=== PATIENT | male | born 1955 | race Caucasian/White ===

== ENCOUNTER 2022-03-04 10:04 | Emergency (ER) | payer BC, SELFPAY ==
[2022-03-04 10:19] VITALS: BP 167/89; PULSE 64; RESP 18; TEMP 36.9; O2SAT 99; BMI 28.5
--- NOTE | 2022-03-04 10:49 | ED.BACK ---
HPI - Back Pain/Injury General Chief Complaint: Back Pain/Injury Stated Complaint: [facility] sent for MRI of lower back Time Seen by Provider: 03/04/22 10:49 Source: patient Mode of arrival: Ambulatory Limitations: no limitations History of Present Illness HPI Narrative: 67-year-old male comes emergency department with complaint of low back pain after [place] the [place] in [place] moving van for 5 days. Patient states it was very hard beds with a lot of bumps on the road he has had increasing pain in his back radiating down his legs and muscle spasms and radiating up towards his neck. He did note that he has had a sense of difficulty emptying his bladder he is able to urinate but feels like there is some hesitancy. He denies fevers or chills. He has pain radiating down both legs but no paresthesias, numbness. He is unsure if he has any weakness he states it may just be more from pain. Patient has not had prior issues in the past. He has never had prior back surgeries. He takes medications for dyslipidemia, hypertension and thyroid. Patient has had a prior hemorrhoidectomy and anoplasty after developing constriction of the rectum post hemorrhoidectomy. He has not had any other additional surgeries. No known drug allergies. Former smoker, occasional alcohol, no illicit. Patient just moved here this week and has not established. Related Data Home Medications Medication Instructions Recorded Confirmed atorvastatin 10 mg tablet 10 mg PO DAILY 03/04/22 03/04/22 lisinopril 10 mg tablet 10 mg PO DAILY 03/04/22 03/04/22 thyroid (pork) 60 mg tablet 60 mg PO DAILY 03/04/22 03/04/22 ([place] Thyroid) Previous Rx's Medication Instructions Recorded gabapentin 300 mg capsule 300 mg PO TID #30 cap 03/04/22 meloxicam 7.5 mg tablet 7.5 mg PO BID PRN #20 tab 03/04/22 Allergies Allergy/AdvReac Type Severity Reaction Status Date / Time No Known Drug Allergies Allergy Unverified 03/04/22 09:32 Review of Systems Review of Systems ROS Unobtainable: All systems reviewed & are unremarkable except as noted in HPI and below Patient History Social History Smoking Status: Former smoker Smoking Status: Former smoker alcohol intake frequency: a few times a month Substance Use Type: does not use Exam Narrative Exam Narrative: GENERAL: Alert and oriented x three, well-nourished male in mild distress. HEENT: Head normocephalic, atraumatic, EOMI, pupils reactive, face symmetric, moist mucous membranes NECK: Supple, full range of motion CARDIOVASCULAR: Regular rate and rhythm without murmurs, rubs or gallops. RESPIRATORY: Breath sounds equal bilaterally, no wheezes rales or rhonchi. ABDOMEN: Soft, nontender. Normoactive bowel sounds all 4 quadrants. No guarding or rebound, rigidity, no mass : No CVA tenderness BACK: No cervical, thoracic or lumbar vertebral point tenderness. Patient has slightly decreased range of motion. Patient's gait is ambulatory. Rectal exam is normal sphincter tone. Muscle strength is 5/5 in lower extremities, DTRs are 2/4 and lower extremities. Dorsalis pedis and tibialis pulses are 2+ and lower extremities. Sensation is intact in the lower extremities. EXTREMITIES: Normal range of motion, no clubbing or edema. Neurovascularly intact NEUROLOGICAL: Cranial nerves II through XII grossly intact. Moving all extremities SKIN: Warm, dry, no petechiae, no rashes or lesions. Initial Vital Signs Initial Vital Signs: Vital Signs Temperature 98.4 F 03/04/22 10:19 Pulse Rate 64 03/04/22 10:19 Respiratory Rate 18 03/04/22 10:19 Blood Pressure 167/89 H 03/04/22 10:19 Pulse Oximetry 99 03/04/22 10:19 Course Orders Ordered: ED Orders 03/04/22 11:22 MR lumbar spine wo con Stat Discontinued Medications Ketorolac Tromethamine (Ketorolac 30 Mg/Ml Vial) 30 mg IM NOW ONE Stop: 03/04/22 11:22 Last Admin: 03/04/22 11:26 Dose: 30 mg Documented by: BTONER Reevaluation(s) Reevaluation #1: Recheck after medications an MRI patient feels more comfortable. Reviewed his findings today. Will set him up with follow-up as he does not have any currently and also options for primary care discussed options for pain medication and pain control and red flag symptoms to return for. Patient expresses understanding all questions answered. Vital Signs Vital signs: Vital Signs - 8 hr 03/04/22 10:19 03/04/22 13:31 Temperature 98.4 F Pulse Rate 64 74 Respiratory Rate 18 18 Blood Pressure 167/89 H 145/79 H Pulse Oximetry 99 99 MDM - Back Pain/Injury Imaging Data MRI Lspine: Radiologist's Impression: Launch?[address] [address] Magnetic Resonance Report Signed Patient: Mike Fabian MR#: [id number] : 1955 Acct:[id number] Age/Sex: 67 / M Date of Service: 03/04/22 Loc: ED Accession Number: [id number] ?? Procedure: MR lumbar spine wo con Ordering Provider: Yvonne Colon D.O. PROCEDURE:? MR LUMBAR SPINE WO CON ? INDICATIONS:? low back pain, radiates both legs, urinary hesitancy ? TECHNIQUE:? Noncontrast sagittal T1 spin echo and T2 fast echo, sagittal STIR, and T2 fast spin echo through the lumbar spine.? In cases with scoliosis, additional coronal T2 fast spin echo may be performed.? ? COMPARISON:? None. ? FINDINGS:? Image quality:? Excellent.? ? Alignment and Curvature:? There is normal bony alignment.? ? Bone Marrow:? Marrow is of normal overall signal. Scattered foci are seen, which are hyperintense on T1-weighted and T2-weighted imaging, which are most consistent with benign vertebral body hemangiomas. ? No acute vertebral body compression fractures.? Mild fatty metaplasia can be seen of the sacrum. ? Spinal Cord:? Conus medullaris terminates at the L1 level.? Visualized cord demonstrates normal signal and size.? A prominent fatty filum terminalis can be seen, without findings of cord tethering. ? Paraspinous Soft Tissues:? No paravertebral masses.? Simple appearing bilateral renal cysts are seen. ? T12-L1:? Normal appearance.? ? L1-L2:? Normal appearance.? ? L2-L3:? No significant abnormality is seen. ? L3-L4:? The disc height is well-preserved.? Loss of disc signal is seen at this level.? Mild to moderate disc bulge is seen. Mild facet joint hypertrophy is seen. Moderate bilateral neural foraminal narrowing is seen.? Mild central canal narrowing is seen.? ? L4-L5:? Mild loss of disc height is seen. Loss of disc signal is seen.? Reactive marrow endplate changes are seen posteriorly, which are hyperintense on T1-weighted and T2-weighted imaging and most consistent with fatty metaplasia (Modic type II changes).? Moderate generalized disc bulge is seen. There is a superimposed central disc protrusion. ? Mild to moderate facet hypertrophy is seen.? There is moderate to severe right-sided and at least moderate left-sided neural foraminal narrowing.? There is a degree of compression seen upon the exiting nerve roots.? Mild to moderate central canal narrowing is seen.? ? L5-S1:? At least moderate loss of disc height and disc signal can be seen. Reactive marrow endplate changes are seen posteriorly, which are hyperintense on T1-weighted and T2-weighted imaging and most consistent with fatty metaplasia (Modic type II changes).? At least moderate disc bulge is seen, which is eccentric to the left.? There is a mild central disc protrusion.? There is at least moderate bilateral neural foraminal narrowing seen. Mild central canal narrowing is seen.? ? ? IMPRESSION:? Lumbar spine degenerative changes can be seen, which are worst inferiorly. ? Dictated by: Christoph Zavala M.D. on 03/04/2022 at 11:28 ? ? Approved by: Christoph Zavala M.D. on 03/04/2022 at 11:32? MDM Narrative Medical decision making narrative: This is a 67-year-old male who comes in with complaint of back pain with some symptoms of urinary hesitancy and questionable weakness. Patient is ambulating in department his neuro exam is normal. Patient does not have follow-up locally available to him he just moved here this week he was sent from walk-in clinic for possible MRI. Patient and I discussed we do have a slot available so imaging was obtained he has some disc bulge, some mild to moderate narrowing of the canal and also some moderate to severe neural foraminal narrowing. With his reassuring exam plan for follow-up but was given referral with Dr. Black our local spinal surgeon as well as primary care. Discharge Plan Departure Patient Disposition: Home Clinical Impression: Neural foraminal stenosis of lumbar spine, Back pain Instructions: DI for Back Pain With Sciatica Activity Restrictions/Additional Instructions: Follow-up with orthopedic surgery for recheck. Referral is included below. Please call for an appointment. You may call [phone] to help you find establish with a primary care physician. You can also call the number on your insurance card to see if they give recommendations locally. Your imaging does show changes to the discs in her back as well as narrowing of the neural foramina causing some impingement on the nerve roots. You may take meloxicam 1 tablet every 12 hours as needed for pain. You may also find gabapentin 1 tablet every 8 hours is helpful for nerve pain. This medication can be titrated upwards if needed but usually under the direction of a physician. Prescription sent to [facility] in [place]. Please return for fevers, loss of bowel or bladder control, rapidly worsening symptoms, weakness inability to ambulate, lift or move her leg or other new or concerning symptoms. Prescriptions: New meloxicam 7.5 mg tablet 7.5 mg PO BID PRN (Reason: pain) Qty: 20 0RF gabapentin 300 mg capsule 300 mg PO TID Qty: 30 0RF No Action lisinopril 10 mg tablet 10 mg PO DAILY 0RF atorvastatin 10 mg tablet 10 mg PO DAILY 0RF thyroid (pork) [[place] Thyroid] 60 mg tablet 60 mg PO DAILY 0RF Referrals: Sima Curry MD [Physician] -
--- NOTE | 2022-03-04 11:22 | DI.MRI.S_ITS ---
PROCEDURE: MR LUMBAR SPINE WO CON INDICATIONS: low back pain, radiates both legs, urinary hesitancy TECHNIQUE: Noncontrast sagittal T1 spin echo and T2 fast echo, sagittal STIR, and T2 fast spin echo through the lumbar spine. In cases with scoliosis, additional coronal T2 fast spin echo may be performed. COMPARISON: None. FINDINGS: Image quality: Excellent. Alignment and Curvature: There is normal bony alignment. Bone Marrow: Marrow is of normal overall signal. Scattered foci are seen, which are hyperintense on T1-weighted and T2-weighted imaging, which are most consistent with benign vertebral body hemangiomas. No acute vertebral body compression fractures. Mild fatty metaplasia can be seen of the sacrum. Spinal Cord: Conus medullaris terminates at the L1 level. Visualized cord demonstrates normal signal and size. A prominent fatty filum terminalis can be seen, without findings of cord tethering. Paraspinous Soft Tissues: No paravertebral masses. Simple appearing bilateral renal cysts are seen. T12-L1: Normal appearance. L1-L2: Normal appearance. L2-L3: No significant abnormality is seen. L3-L4: The disc height is well-preserved. Loss of disc signal is seen at this level. Mild to moderate disc bulge is seen. Mild facet joint hypertrophy is seen. Moderate bilateral neural foraminal narrowing is seen. Mild central canal narrowing is seen. L4-L5: Mild loss of disc height is seen. Loss of disc signal is seen. Reactive marrow endplate changes are seen posteriorly, which are hyperintense on T1-weighted and T2-weighted imaging and most consistent with fatty metaplasia (Modic type II changes). Moderate generalized disc bulge is seen. There is a superimposed central disc protrusion. Mild to moderate facet hypertrophy is seen. There is moderate to severe right-sided and at least moderate left-sided neural foraminal narrowing. There is a degree of compression seen upon the exiting nerve roots. Mild to moderate central canal narrowing is seen. L5-S1: At least moderate loss of disc height and disc signal can be seen. Reactive marrow endplate changes are seen posteriorly, which are hyperintense on T1-weighted and T2-weighted imaging and most consistent with fatty metaplasia (Modic type II changes). At least moderate disc bulge is seen, which is eccentric to the left. There is a mild central disc protrusion. There is at least moderate bilateral neural foraminal narrowing seen. Mild central canal narrowing is seen. IMPRESSION: Lumbar spine degenerative changes can be seen, which are worst inferiorly. Dictated by: Christoph Zavala M.D. on 03/04/2022 at 11:28 Approved by: Christoph Zavala M.D. on 03/04/2022 at 11:32
[2022-03-04] MEDS: KETOROLAC 30 MG/ML VIAL IM (11:26)
[2022-03-04 13:31] VITALS: BP 145/79; PULSE 74; RESP 18; O2SAT 99
== END 2022-03-04 13:32 | disposition home or self-care (01) ==
PROVIDERS: Emergency Provider Emergency Medicine
DX: M48.061 Spinal stenosis, lumbar region without neurogenic claudication (principal); R39.11 Hesitancy of micturition
CPT/HCPCS: 72148; 96372; 99283; 99284; J1885

== ENCOUNTER → 2022-06-24 08:11 | Outpatient (CLI) | payer BC, SELFPAY ==
[2022-06-24 08:55] LABS: Appearance Urine UA CLEAR; Bilirubin Urine UA NEGATIVE (NEGATIVE); Color Urine UA YELLOW; Glucose Urine UA NEGATIVE (Negative); Ketones Urine UA NEGATIVE (NEGATIVE); Leukocyte Esterase Urine UA NEGATIVE (NEGATIVE); Nitrite Urine UA NEGATIVE (Negative); Occult Blood Urine UA 1+ (Negative); Protein Urine UA NEGATIVE (Negative); Specific Gravity Urine UA 1.025 (1.000-1.035); Urobilinogen Urine UA 0.2 E.U./dL (0.2)
[2022-06-24 09:06] LABS: Bacteria Urine Few (2-10); RBC Urine 1-5/HPF (0-5/HPF); WBC Urine 0-1/HPF (0-5/HPF)
[2022-06-24 09:07] LABS: Culture Indicated Urine Cult Not Indicated; Mucus Urine 1+ (Negative)
[2022-06-24 09:28] LABS: Add Manual Diff / Slide Review NO; Basophils Absolute Auto 0 /uL (0-100); Basophils Percent Auto 0.7 % (0-2); Eosinophils Absolute Auto 100 /uL (0-450); Eosinophils Percent Auto 1.6 % (2-4); Hematocrit 43.6 % (41-53); Hemoglobin 15.2 g/dL (13.5-17.5); Lymphocytes Absolute Auto 2000 /uL (1100-4500); Lymphocytes Percent Auto 30.4 % (25-40); Mean Corpuscular HGB Conc 34.7 % (30-36); Mean Corpuscular Volume 86.3 fL (80-100); Monocytes Absolute Auto 600 /uL (0-900); Monocytes Percent Auto 9.2 % (3-14); Neutrophils Absolute Auto 3800 /uL (1500-7000); Neutrophils Percent Auto 58.1 % (50-75); Platelet Count 228 X10^3/uL (150-400); Red Blood Cell Count 5.06 X10^6/uL (4.5-5.9); Red Cell Distribution Width 13.7 % (11.6-14.8); White Blood Cell Count 6.5 X10^3/uL (4.5-11.0)
[2022-06-24 09:39] LABS: Alanine Aminotransferase 27 IU/L (<50); Albumin 4.7 g/dL (3.5-5.0); Albumin Globulin Ratio 1.6 (1.0-2.8); Alkaline Phosphatase 85 U/L (38-126); Aspartate Aminotransferase 29 IU/L (17-59); BUN Creatinine Ratio 17.3 (6-22); Bilirubin Total 0.9 mg/dL (0.2-1.3); Blood Urea Nitrogen 19 mg/dL (9-20); Calcium 8.9 mg/dL (8.4-10.2); Carbon Dioxide 24 mmol/L (22-32); Chloride 106 mmol/L (98-107); Cholesterol 201 mg/dL (140-199); Estimated Glomerular Filt Rate > 60 mL/min (>60); Globulin 2.9 g/dL (1.7-4.1); Glucose 98 mg/dL (80-110); HDL Cholesterol 37 mg/dL (40-60); HEMOLYSIS < 15 (0-50); LDL Cholesterol Calculated 130 mg/dL (<100); Potassium 4.1 mmol/L (3.4-5.1); Sodium 138 mmol/L (137-145); Total Protein 7.6 g/dL (6.3-8.2); Triglycerides 170 mg/dL (35-150)
[2022-06-24 10:06] LABS: Prostate Specific Antigen Scrn 0.986 ng/mL (0.1-4.0)
[2022-06-24 10:09] LABS: Testosterone 273 ng/dL (71.8-623)
[2022-06-24 10:11] LABS: TSH w/ Reflex to FT4 1.51 uIU/mL (0.47-4.68)
== END ==
PROVIDERS: PCP Pediatrics; Referring Provider Pediatrics; Visit Provider Pediatrics
DX: E03.9 Hypothyroidism, unspecified (principal); E78.5 Hyperlipidemia, unspecified; I10 Essential (primary) hypertension; Z12.5 Encounter for screening for malignant neoplasm of prostate
CPT/HCPCS: 36415; 80053; 80061; 81001; 84403; 84443; 85025; G0103

== ENCOUNTER → 2023-10-06 08:56 | Outpatient (CLI) | payer BC, SELFPAY ==
[2023-10-06 09:43] LABS: Add Manual Diff / Slide Review NO; Basophils Absolute Auto 0 /uL (0-100); Basophils Percent Auto 0.5 % (0-2); Eosinophils Absolute Auto 200 /uL (0-450); Eosinophils Percent Auto 2.8 % (2-4); Hematocrit 44.5 % (41-53); Lymphocytes Absolute Auto 2000 /uL (1100-4500); Lymphocytes Percent Auto 29.2 % (25-40); Mean Corpuscular HGB Conc 33.8 % (30-36); Mean Corpuscular Hemoglobin 29.3 PG (26-34); Mean Corpuscular Volume 86.8 fL (80-100); Monocytes Absolute Auto 600 /uL (0-900); Monocytes Percent Auto 8.7 % (3-14); Neutrophils Absolute Auto 4100 /uL (1500-7000); Neutrophils Percent Auto 58.8 % (50-75); Platelet Count 214 X10^3/uL (150-400); Red Blood Cell Count 5.13 X10^6/uL (4.5-5.9); Red Cell Distribution Width 13.3 % (11.6-14.8); White Blood Cell Count 6.9 X10^3/uL (4.5-11.0)
[2023-10-06 10:31] LABS: Erythrocyte Sedimentation Rate 3 MM/HR (0-15)
[2023-10-06 12:37] LABS: Alanine Aminotransferase 40 IU/L (<50); Albumin Globulin Ratio 1.4 (1.0-2.8); Alkaline Phosphatase 72 U/L (38-126); Aspartate Aminotransferase 35 IU/L (17-59); BUN Creatinine Ratio 14.6 (6-22); Bilirubin Total 0.6 mg/dL (0.2-1.3); Blood Urea Nitrogen 15 mg/dL (9-20); Calcium 9.2 mg/dL (8.4-10.2); Carbon Dioxide 28 mmol/L (22-32); Chloride 104 mmol/L (98-107); Cholesterol 184 mg/dL (140-199); Estimated Glomerular Filt Rate > 60 mL/min (>60); Globulin 2.9 g/dL (1.7-4.1); Glucose 89 mg/dL (80-110); HDL Cholesterol 45 mg/dL (40-60); HEMOLYSIS < 15 (0-50); LDL Cholesterol Calculated 111 mg/dL (<100); Potassium 4.5 mmol/L (3.4-5.1); Sodium 138 mmol/L (137-145); Total Protein 6.9 g/dL (6.3-8.2); Triglycerides 140 mg/dL (35-150)
[2023-10-06 12:45] LABS: Rheumatoid Factor < 8.6 IU/mL (<12.0)
[2023-10-06 13:09] LABS: Testosterone 262 ng/dL (71.8-623)
== END ==
PROVIDERS: PCP Student in an Organized Health Care Education/Training Program; Referring Provider Student in an Organized Health Care Education/Training Program; Visit Provider Student in an Organized Health Care Education/Training Program
DX: E03.9 Hypothyroidism, unspecified (principal); M25.50 Pain in unspecified joint; E78.5 Hyperlipidemia, unspecified; I10 Essential (primary) hypertension; R53.83 Other fatigue
CPT/HCPCS: 36415; 80053; 80061; 84403; 84443; 85025; 85651; 86430

== ENCOUNTER → 2023-10-15 09:02 | Outpatient (CLI) | payer BC, SELFPAY ==
[2023-10-15 10:49] LABS: Follicle Stimulating Hormone 4.19 mIU/mL; Luteinizing Hormone 1.95 mIU/mL
[2023-10-21 09:09] LABS: Percent Free Testosterone 2.06 % (1.50-4.20)
== END ==
PROVIDERS: PCP Student in an Organized Health Care Education/Training Program; Referring Provider Student in an Organized Health Care Education/Training Program; Visit Provider Student in an Organized Health Care Education/Training Program
DX: R79.89 Other specified abnormal findings of blood chemistry (principal); R53.83 Other fatigue
CPT/HCPCS: 36415; 83001; 83002; 84402; 84403

== ENCOUNTER → 2023-12-06 09:44 | Outpatient (CLI) | payer BC, SELFPAY ==
[2023-12-06 10:32] LABS: C-Reactive Protein Quant < 0.5 mg/dL (<1.0)
[2023-12-06 10:41] LABS: Free T3, Triiodothyronine Free 3.79 pg/mL (2.77-5.27)
[2023-12-06 10:55] LABS: TSH w/ Reflex to FT4 1.12 uIU/mL (0.47-4.68)
== END ==
LOC: LAB 09:45
PROVIDERS: PCP Student in an Organized Health Care Education/Training Program; Referring Provider Student in an Organized Health Care Education/Training Program; Visit Provider Student in an Organized Health Care Education/Training Program
DX: R79.89 Other specified abnormal findings of blood chemistry (principal); N40.1 Benign prostatic hyperplasia with lower urinary tract symptoms; R33.8 Other retention of urine; R53.83 Other fatigue; M25.50 Pain in unspecified joint; E78.5 Hyperlipidemia, unspecified; I10 Essential (primary) hypertension; E03.9 Hypothyroidism, unspecified
CPT/HCPCS: 36415; 84443; 84481; 86140

== ENCOUNTER → 2024-05-14 09:01 | Outpatient (CLI) | payer BC, SELFPAY ==
[2024-05-14 11:53] LABS: Cholesterol 195 mg/dL (140-199); HDL Cholesterol 54 mg/dL (40-60); LDL Cholesterol Calculated 114 mg/dL (<100); Triglycerides 133 mg/dL (35-150)
[2024-05-14 11:57] LABS: High Sensitivity CRP - Cardiac 1.3 mg/L (1.0-3.0)
[2024-05-14 12:07] LABS: Free T3, Triiodothyronine Free 3.01 pg/mL (2.77-5.27); Free T4, Direct Thyroxine 1.09 ng/dL (0.78-2.19)
[2024-05-14 12:20] LABS: Thyroid Stimulating Hormone 0.578 uIU/mL (0.47-4.68)
== END ==
PROVIDERS: PCP Student in an Organized Health Care Education/Training Program; Referring Provider Student in an Organized Health Care Education/Training Program; Visit Provider Student in an Organized Health Care Education/Training Program
DX: R53.83 Other fatigue (principal); E78.5 Hyperlipidemia, unspecified; I10 Essential (primary) hypertension
CPT/HCPCS: 36415; 80061; 84439; 84443; 84481; 86140

== ENCOUNTER → 2025-03-31 09:48 | Outpatient (CLI) | payer BC, SELFPAY ==
[2025-03-31 10:51] LABS: Add Manual Diff / Slide Review NO; Basophils Absolute Auto 0 /uL (0-100); Basophils Percent Auto 0.6 % (0-2); Eosinophils Absolute Auto 100 /uL (0-450); Eosinophils Percent Auto 1.4 % (2-4); Hematocrit 40.7 % (41-53); Lymphocytes Absolute Auto 2400 /uL (1100-4500); Lymphocytes Percent Auto 31.5 % (25-40); Mean Corpuscular HGB Conc 34.4 % (30-36); Mean Corpuscular Hemoglobin 29.8 PG (26-34); Mean Corpuscular Volume 86.7 fL (80-100); Monocytes Absolute Auto 700 /uL (0-900); Monocytes Percent Auto 9.5 % (3-14); Neutrophils Absolute Auto 4300 /uL (1500-7000); Platelet Count 231 X10^3/uL (150-400); Red Cell Distribution Width 14.1 % (11.6-14.8); White Blood Cell Count 7.6 X10^3/uL (4.5-11.0)
[2025-03-31 11:37] LABS: Hemoglobin A1C% w Est Avg Glu 5.3 % (4.0-6.0)
[2025-03-31 11:42] LABS: Alanine Aminotransferase 34 IU/L (<50); Albumin 4.5 g/dL (3.5-5.0); Albumin Globulin Ratio 1.8 (1.0-2.8); Alkaline Phosphatase 76 U/L (38-126); Aspartate Aminotransferase 32 IU/L (17-59); BUN Creatinine Ratio 19.8 (6-22); Blood Urea Nitrogen 24 mg/dL (9-20); Calcium 9.3 mg/dL (8.4-10.2); Carbon Dioxide 26 mmol/L (22-32); Chloride 104 mmol/L (98-107); Cholesterol 302 mg/dL (140-199); Estimated Glomerular Filt Rate > 60 mL/min (>60); Globulin 2.5 g/dL (1.7-4.1); Glucose 86 mg/dL (70-99); HDL Cholesterol 41 mg/dL (40-60); HEMOLYSIS < 15 (0-50); LDL Cholesterol Calculated 233 mg/dL (<100); Potassium 3.8 mmol/L (3.4-5.1); Sodium 138 mmol/L (137-145); Triglycerides 139 mg/dL (35-150)
[2025-03-31 12:10] LABS: Prostate Specific Antigen 0.998 ng/mL (0.10-4.00)
[2025-04-01 04:08] LABS: Apolipoprotein B 162 mg/dL (<90); CRP, High Sensitivity 2.32 mg/L (0.00-3.00)
== END ==
PROVIDERS: PCP Student in an Organized Health Care Education/Training Program; Referring Provider Student in an Organized Health Care Education/Training Program; Visit Provider Student in an Organized Health Care Education/Training Program
DX: Z13.1 Encounter for screening for diabetes mellitus (principal); N40.0 Benign prostatic hyperplasia without lower urinary tract symptoms; I10 Essential (primary) hypertension; E78.5 Hyperlipidemia, unspecified
CPT/HCPCS: 36415; 80053; 80061; 82172; 83036; 84153; 85025; 86140

== ENCOUNTER → 2025-04-19 14:07 | Outpatient (CLI) | payer BC, SELFPAY ==
[2025-04-19 17:15] LABS: Free T3, Triiodothyronine Free 3.23 pg/mL (2.77-5.27); Free T4, Direct Thyroxine 1.13 ng/dL (0.78-2.19)
[2025-04-19 17:29] LABS: Thyroid Stimulating Hormone 1.39 uIU/mL (0.47-4.68)
[2025-04-21 04:41] LABS: CRP, High Sensitivity 1.85 mg/L (0.00-3.00)
== END ==
PROVIDERS: PCP Student in an Organized Health Care Education/Training Program; Referring Provider Student in an Organized Health Care Education/Training Program; Visit Provider Student in an Organized Health Care Education/Training Program
DX: E03.9 Hypothyroidism, unspecified (principal); Z79.899 Other long term (current) drug therapy; E78.5 Hyperlipidemia, unspecified; I10 Essential (primary) hypertension
CPT/HCPCS: 36415; 84439; 84443; 84481; 86140

== ENCOUNTER → 2025-06-15 12:20 | Outpatient (CLI) | payer BC, SELFPAY ==
[2025-06-15 13:19] LABS: Cholesterol 183 mg/dL (140-199); HDL Cholesterol 44 mg/dL (40-60); Triglycerides 182 mg/dL (35-150)
== END ==
PROVIDERS: PCP Student in an Organized Health Care Education/Training Program; Referring Provider Student in an Organized Health Care Education/Training Program; Visit Provider Student in an Organized Health Care Education/Training Program
DX: E78.5 Hyperlipidemia, unspecified (principal)
CPT/HCPCS: 36415; 80061; 82172

== ENCOUNTER 2025-07-06 09:10 | Day surgery (SDC) | payer BC, OTHER, SELFPAY ==
[2025-07-06 09:28] VITALS: BP 127/69; PULSE 60; RESP 15; TEMP 36.1; O2SAT 98
[2025-07-06] MEDS: LACTATED RINGERS 1,000 ML 42 ML IV (09:48)
--- NOTE | 2025-07-06 09:53 | PM.HP.IH.1 ---
History of Present Illness History of Present Illness Date Patient Seen: 07/06/25 Chief complaint: Screening Colonoscopy [facility] Medical History Plantar warts (~2007) Osteoarthritis (~2019) Sleep apnea (~2013) Shoulder pain (~2007) Mumps Measles Chicken pox Vertigo (~2018) Tinnitus Recurrent sinusitis Hearing loss (~2021) Cataracts, bilateral (~2017) Kidney stones (~2007) Hemorrhoid (~1978) Hyperlipidemia Hypertension Hypothyroid (~2014) Surgical History Anesthesia History of cataract removal with insertion of prosthetic lens (~2018) S/P LASIK surgery (~2003) History of repair of rotator cuff (~2007) History of hemorrhoidectomy (~1979) Family History Father Heart disease Sister Drug overdose Mother No problems noted. Social History Smoking Status: Former smoker alcohol intake: former Meds Home Medications and Allergies Home Medications ?Medication ?Instructions ?Recorded ?Confirmed ?Type levothyroxine 88 mcg capsule 88 mcg PO DAILY #90 caps 09/27/24 07/06/25 Rx lisinopril 20 1 tab PO DAILY #90 tabs 04/05/25 07/06/25 Rx mg-hydrochlorothiazide 12.5 mg tablet evolocumab 140 mg/mL subcutaneous 140 mg SUBCUT Q2W #6 mL 04/18/25 07/04/25 Rx pen injector (Iveth Puri) cholecalciferol (vitamin D3) 250 250 mcg PO DAILY 04/26/25 07/04/25 History mcg (10,000 unit) capsule magnesium glycinate 100 mg (as 100 mg PO DAILY 04/26/25 07/04/25 History glycinate) tablet urolithen a PO 04/26/25 07/04/25 History vitamin K2 90 mcg capsule 90 mcg PO DAILY 04/26/25 07/04/25 History zinc gluconate 10 mg lozenges 10 mg PO DAILY 04/26/25 07/04/25 History alfuzosin 10 mg tablet,extended 10 mg PO DAILY #90 tabs 06/20/25 07/04/25 Rx release 24 hr rosuvastatin 10 mg tablet 10 mg PO DAILY #90 tabs 06/20/25 07/04/25 Rx dihydro burbureen PO 1XD 07/04/25 07/04/25 History tadalafil 5 mg tablet 5 mg PO DAILY #90 tabs 07/04/25 07/06/25 Rx Allergies Allergy/AdvReac Type Severity Reaction Status Date / Time tamsulosin (From Flomax) Allergy Mild Dizziness Verified 07/06/25 09:20 [id number] Reductase AdvReac Mild Muscle Pain Verified 07/06/25 09:20 Inhibitor Exam Vital Signs (past 8 hours): - 07/06/25 09:28 Temperature 97.0 F L Pulse Rate 60 Respiratory Rate 15 Blood Pressure 127/69 Pulse Oximetry 98 Oxygen Delivery Method Room Air Oxygen Delivery Method Room Air Narrative Exam Narrative: Oropharynx free of lesions Assessment & Plan Assessment & Plan narrative: 10 year follow-up colonoscopy. Risks, benefits, alternatives have been explained. Time-Based Coding :: [TOTAL MINUTES] spent with patient and on the chart (including review of chart, obtaining history, exam, reviewing outside data, placing orders, documenting exam and treatment plan, and counseling patient) on [DATE]. PROFEE Area Attendant Document charge(s): No
[2025-07-06 10:14] VITALS: BP 95/53; PULSE 55; RESP 16; TEMP 36.1; O2SAT 95
--- NOTE | 2025-07-06 10:14 | PM.OP.COLON ---
Operative Date/Time/Diagnoses Date of procedure: 07/06/25 Time of procedure: 10:16 Pre-op diagnosis: See indication and findings Post-op diagnosis: same Procedure & Clinicians Study performed: Colonoscopy Same procedure(s) as scheduled: Yes Indications: 10 year follow-up screening Surgeon: Mary Van Anesthesia Type: Other Procedure Notes Procedure in detail: After informed consent was obtained the patient was placed in left lateral decubitus position. The video colonoscope was introduced the rectum slowly advanced cecum. Preparation was good. On slow withdrawal mucosa was carefully examined. The scope was removed. The patient tolerated procedure well. Blood loss none Complications none Sedation mac Findings 1. Scattered left-sided diverticula 2. Otherwise negative colonoscopy to cecum Patient should have follow-up colonoscopy in 10 years
[2025-07-06 10:15] VITALS: BP 91/55; PULSE 54; RESP 16; O2SAT 96
[2025-07-06 10:22] VITALS: BP 97/55; PULSE 55; RESP 36; TEMP 36.1; O2SAT 97
[2025-07-06 10:26] VITALS: BP 83/54; PULSE 53; RESP 17; O2SAT 96
== END 2025-07-06 10:45 | disposition home or self-care (01) ==
PROVIDERS: PCP Student in an Organized Health Care Education/Training Program; Referring Provider Internal Medicine Gastroenterology; Visit Provider Internal Medicine Gastroenterology
PROC: 0DJD8ZZ Inspection of Lower Intestinal Tract, Via Natural or Artificial Opening Endoscopic (ICD-10-PCS; CPT 45378; principal; 2025-07-06 10:30)
DX: Z12.11 Encounter for screening for malignant neoplasm of colon (principal); Z87.891 Personal history of nicotine dependence; K57.30 Diverticulosis of large intestine without perforation or abscess without bleeding
CPT/HCPCS: 45378; J2405; J2704

== ENCOUNTER → 2025-09-02 07:09 | Outpatient (CLI) | payer BC, OTHER, SELFPAY ==
[2025-09-02 08:15] LABS: Hemoglobin A1C% w Est Avg Glu 5.6 % (4.0-6.0)
[2025-09-02 08:24] LABS: Alanine Aminotransferase 20 IU/L (<50); Albumin 4.6 g/dL (3.5-5.0); Albumin Globulin Ratio 1.8 (1.0-2.8); Alkaline Phosphatase 66 U/L (38-126); Blood Urea Nitrogen 40 mg/dL (9-20); Calcium 9.2 mg/dL (8.4-10.2); Carbon Dioxide 23 mmol/L (22-32); Chloride 102 mmol/L (98-107); Cholesterol 109 mg/dL (140-199); Estimated Glomerular Filt Rate 49 mL/min (>60); Globulin 2.5 g/dL (1.7-4.1); Glucose 101 mg/dL (70-99); HDL Cholesterol 67 mg/dL (40-60); HEMOLYSIS < 15 (0-50); Potassium 4.2 mmol/L (3.4-5.1); Sodium 136 mmol/L (137-145); Total Protein 7.1 g/dL (6.3-8.2); Triglycerides 66 mg/dL (35-150)
[2025-09-03 07:41] LABS: CRP, High Sensitivity 0.71 mg/L (0.00-3.00)
== END ==
PROVIDERS: PCP Student in an Organized Health Care Education/Training Program; Referring Provider Student in an Organized Health Care Education/Training Program; Visit Provider Student in an Organized Health Care Education/Training Program
DX: I10 Essential (primary) hypertension (principal); E78.5 Hyperlipidemia, unspecified; Z79.899 Other long term (current) drug therapy
CPT/HCPCS: 36415; 80053; 80061; 82172; 83036; 83090; 83695; 86140